=== PATIENT | female | born 1980 | race Hispanic/Latino ===

== ENCOUNTER 2018-01-15 23:12 | Emergency (ER) | payer BC ==
[2018-01-16] MEDS ORDERED: Sodium Chloride 0.9% 1,000 ML IV ONE (00:25)
[2018-01-16 01:10] LABS: BASO # 0.1 K/uL (0.0-0.2); BASO % 0.7 % (0.0-2.0); EOS # 0.2 K/uL (0.0-0.7); EOS % 1.8 % (0.0-4.0); HEMOGLOBIN 14.1 g/dL (12.0-16.0); LYMPH # 1.7 K/uL (1.0-4.3); LYMPH % 16.3 % (20.0-40.0); MEAN CELL VOLUME 83.7 fl (81.0-99.0); MEAN CORPUSCULAR HGB CONC 34.6 g/dL (33.0-37.0); MEAN PLATELET VOLUME 7.7 fl (7.2-11.7); MONO # 0.8 K/uL (0.0-0.8); MONO % 7.5 % (0.0-10.0); NEUT # 7.5 K/uL (1.8-7.0); NEUT % 73.7 % (50.0-75.0); RBC 4.87 Mil/uL (3.80-5.20); RED CELL DISTRIBUTION WIDTH 12.9 % (11.5-14.5); WHITE BLOOD COUNT 10.2 K/uL (4.8-10.8)
[2018-01-16 01:24] LABS: BLOOD UREA NITROGEN 8 mg/dl (7-17); CALCIUM 9.5 mg/dL (8.4-10.2); GFR NON-AFRICAN AMERICAN > 60
--- NOTE | 2018-01-16 01:41 | ED PDOC ---
HPI: CCC, URI, Sore Throat Time Seen by Provider: 01/15/18 23:29 Chief Complaint (Nursing): ENT Problem Chief Complaint (Provider): Fever, Throat Pain History Per: Patient History/Exam Limitations: no limitations Onset/Duration Of Symptoms: Hrs (this morning) Current Symptoms Are (Timing): Still Present Location Of Pain: Throat Sick Contacts (Context): Family Member(s) (son- bronchitis) Associated Symptoms: Fever, Sore Throat, Nasal Congestion (mild), Other (body aches). denies: Cough, Nausea, Vomiting Additional Complaint(s): Leelee Cedillo is a 37 year old female, with no significant past medical history, who presents to the emergency department for evaluation of fever, Tmax of 102, body aches and sore throat since this morning upon waking up. She took DayQuil at 07:00 but nothing since. Patient reports positive sick contact stating her son is being treated for bronchitis. 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 She also reports some mild nasal congestion earlier today and a brief coughing episode otherwise she denies any cough, nausea, vomit, diarrhea, headache, dizziness, neck pain, abdominal pain, rash, chest pain, shortness of breath or recent travel. LMP 1 year ago, IUD in place. PMD: None provided. Past Medical History Reviewed: Historical Data, Nursing Documentation, Vital Signs Vital Signs: Last Vital Signs Temp 99.8 F H 01/16/18 02:01 Pulse 99 H 01/16/18 02:01 Resp 16 01/16/18 02:01 BP 122/55 L 01/16/18 02:01 Pulse Ox 97 01/18/18 21:28 - Medical History PMH: No Chronic Diseases - Surgical History Surgical History: Tonsillectomy, (x2) - Family History Family History: States: Unknown Family Hx - Social History Current smoker - smoking cessation education provided: No Alcohol: None Drugs: Denies - Home Medications Home Medications: Ambulatory Orders Medication Instructions Recorded Acetaminophen [Acetaminophen 8 650 mg PO Q8 PRN #21 tablet.er 01/16/18 Hour] Ibuprofen [Motrin Tab] 800 mg PO Q8 PRN #21 tab 01/16/18 Promethazine DM [Phenergan DM 5 ml PO Q6 PRN #120 ml 09/14/18 Syrup] - Allergies Allergies/Adverse Reactions: Allergies Allergy/AdvReac Type Severity Reaction Status Date / Time No Known Allergies Allergy Verified 01/15/18 23:22 Review of Systems ROS Statement: Except As Marked, All Systems Reviewed And Found Negative Constitutional: Positive for: Fever, Other (body aches) ENT: Positive for: Nose Congestion (mild), Throat Pain Cardiovascular: Negative for: Chest Pain Respiratory: Negative for: Cough, Shortness of Breath Gastrointestinal: Negative for: Nausea, Vomiting, Abdominal Pain, Diarrhea Skin: Negative for: Rash Neurological: Negative for: Headache, Dizziness Physical Exam - Reviewed Nursing Documentation Reviewed: Yes Vital Signs Reviewed: Yes - Physical Exam Comments: GENERAL APPEARANCE: Patient is awake, alert, oriented x3, and in no acute distress. Resting comfortably. SKIN: Warm, dry; (-) cyanosis; (-) petechiae, (-) rash EYES: (-) conjunctival pallor, (-) icterus. ENMT: TMs (-) erythema, (-)bulging. Pharynx: Clear, uvula midline (+) Mild erythema (-) tonsillar exudate. Airway patent, (-) stridor. Mucous membranes moist. Nares patent, no rhinorrhea. (-) sinus tenderness NECK: Supple, FROM (-) stiffness, (-) meningismus, (-) lymphadenopathy. CHEST AND RESPIRATORY: (-) retractions, (-) rales, (-) rhonchi, (-) wheezes; breath sounds equal bilaterally. Respirations even and nonlabored, speaking in full sentences. HEART AND CARDIOVASCULAR: (-) irregularity ABDOMEN AND GI: Soft; (-) tenderness; (-) distention, (-) guarding (-) CVA tenderness EXTREMITIES: (-) deformity; distal pulses are present. NEURO AND PSYCH: Mental status as above; Gait: steady. Speech: clear. EOMI and painless. (-) facial asymmetry (-) aphasia - Laboratory Results Result Diagrams: 01/16/18 01:00 01/16/18 01:00 Urine POC: Negative - ECG O2 Sat by Pulse Oximetry: 97 (RA) Pulse Ox Interpretation: Normal Medical Decision Making Medical Decision Making: Time: 23:25 Initial Impression: Viral pharyngitis/ URI Initial Plan: --BMP --Urine --CBC w/ differential --Sodium Chloride 1,000 ml IV 1,000 mls/hr --Tylenol 650 mg PO --Blood culture --Throat culture --Rapid Strep Group A Antigen --Reevaluation 0135 Labs reviewed and grossly unremarkable. No elevation of WBCs. Rapid Strep: Negative. Repeat temp: 100.4 0215 Repeat temp: 99.8 Repeat HR: 99 On re-evaluation, patient reports improvement of symptoms. On exam, patient remains AAOx3, in no acute distress. Lungs clear to auscultation, cardiac RRR, abdomen soft, non-tender, repeat neuro exam shows no focal findings. VSS, stable for discharge. Lab/Diagnostic results d/w the patient in great detail. Diagnosis of cough, viral pharyngitis/URI d/w the patient. Based on history, exam and diagnostic results, plan will be for outpatient follow up. Patient instructed to follow-up with pmd / referral provided / the clinic in 1- 2 days without fail. Advised to take medication as prescribed. Return to the emergency room at any time for any new or worsening symptoms. Patient states she fully agrees with and understands discharge instructions. States that she agrees with the plan and disposition. Verbalized and repeated discharge instructions and plan. I have given the patient opportunity to ask any additional questions. ----- Scribe Attestation: Documented by Jey Washington, acting as a scribe for Olena Barragan PA-C. Provider Scribe Attestation: All medical record entries made by the Scribe were at my direction and personally dictated by me. I have reviewed the chart and agree that the record accurately reflects my personal performance of the history, physical exam, medical decision making, and the department course for this patient. I have also personally directed, reviewed, and agree with the discharge instructions and disposition. Disposition - Clinical Impression Clinical Impression: Viral pharyngitis, Viral URI with cough, Body aches, Fever - Patient ED Disposition Is Patient to be Admitted: No Counseled Patient/Family Regarding: Studies Performed, Diagnosis, Need For Followup, Rx Given - Disposition Referrals: [facility] [place] [Outside] Disposition: Routine/Home Disposition Time: 02:19 Condition: STABLE Additional Instructions: The emergency medical care you received today was directed towards the acute presenting symptoms. If you were prescribed any medication, please fill it and give as directed. It may take several days for your symptoms to resolve. Return to the Emergency Department at any time if symptoms worsen, do not improve, or if any other problems arise. Please contact your doctor in 2 days for re-evaluation and follow up / or call one of the physicians/clinics you have been referred to that are listed on the Patient Visit Information form that is included in your discharge packet. Bring any paperwork you were given at discharge with you along with any medications to your follow up visit. Our treatment cannot replace ongoing medical care by a primary care provider (PCP) outside of the emergency department. Prescriptions: Acetaminophen [Acetaminophen 8 Hour] 650 mg PO Q8 PRN #21 tablet.er PRN Reason: Fever >100.4 F Ibuprofen [Motrin Tab] 800 mg PO Q8 PRN #21 tab PRN Reason: Fever >100.4 F Promethazine DM [Phenergan DM Syrup] 5 ml PO Q6 PRN #120 ml PRN Reason: Cough Instructions: Viral Pharyngitis, Cough, Runny Nose, and the Common Cold, Fever , Adult (DC), Viral Syndrome (DC), When to Worry About a Fever Forms: [employer] (German) Print Language: TURKISH - POA Present On Arrival: None Results - Lab Results Lab Results: 01/16/18 01/16/18 01/15/18 01:00 01:00 23:48 WBC 10.2 RBC 4.87 Hgb 14.1 Hct 40.7 MCV 83.7 MCH 29.0 MCHC 34.6 RDW 12.9 Plt Count 289 MPV 7.7 Neut % (Auto) 73.7 Lymph % (Auto) 16.3 L [place] % (Auto) 7.5 Eos % (Auto) 1.8 Baso % (Auto) 0.7 Neut # (Auto) 7.5 H Lymph # (Auto) 1.7 [place] # (Auto) 0.8 Eos # (Auto) 0.2 Baso # (Auto) 0.1 Sodium 140 Potassium 4.3 Chloride 103 Carbon Dioxide 28 Anion Gap 13 BUN 8 Creatinine 0.7 Est GFR ( Amer) > 60 Est GFR (Non-Af Amer) > 60 Random Glucose 111 H Calcium 9.5 Grp A Beta Strep Ag Negative
[2018-01-16 02:01] VITALS: BP 122/55; PULSE 99; RESP 16; TEMP 99.8
[2018-01-16 02:21] VITALS: O2SAT 97
== END 2018-01-16 03:42 | disposition home or self-care (01) ==
LOC: H.ER 23:12
DX: J06.9 Acute upper respiratory infection, unspecified (principal); R50.9 Fever, unspecified; J02.9 Acute pharyngitis, unspecified; R05 Cough
CPT/HCPCS: 80048; 81025; 85025; 87040; 87070; 87430; 96360; 99283; J7040